=== PATIENT | female | born 1960 | race Two or more races ===

== ENCOUNTER 2017-08-15 23:05 | Emergency (ER) | payer OTHER ==
[~2017-08-15] VITALS: Ht 165.1 cm; Wt 64.9 kg
[2017-08-15 23:11] VITALS: BP 131/78
== END 2017-08-16 00:56 | disposition home or self-care (01) ==
LOC: ER 23:06
DX: M25.511 Pain in right shoulder (principal); M25.512 Pain in left shoulder; G89.29 Other chronic pain; G54.0 Brachial plexus disorders
CPT/HCPCS: A4606; Z7610